=== PATIENT | male | born 1985 | race Two or more races ===

== ENCOUNTER 2021-05-19 10:43 | Inpatient (IN) | payer MEDICAID, SELFPAY ==
[~2021-05-19] VITALS: Ht 170.2 cm; Wt 67.6 kg
[2021-05-19 11:04] VITALS: BP_SYST 149
--- NOTE | 2021-05-19 11:12 | NUR ---
Patient to ER bed 3 to gown for evaluation. Side rails up. Report given to [place] MIKE.
--- NOTE | 2021-05-19 11:20 | NUR ---
RECEIVED IN ROOM, CALM, ALERT, RESP UNLABORED, SKIN WARM AND DRY. COMMUNICATES CLEARLY IN FULL COMPLETE SENTECES, DENIES CP/SOB
[2021-05-19] MEDS ORDERED: GLUCAGON,HUMAN RECOMBINANT 1 MG VIAL IVP ONE (11:45)
--- NOTE | 2021-05-19 11:45 | NUR ---
DR FLOWER IN TO ASSESS
--- NOTE | 2021-05-19 12:10 | NUR ---
SITTING UP TALKING, NO DYSPNEA, DENIES CP/SOB, RESP UNLABORED
--- NOTE | 2021-05-19 12:38 | NUR ---
OFF TO CT VIA WHEELCHAIR, CALM, AND ALERT
--- NOTE | 2021-05-19 13:14 | NUR ---
SWALLOW STUDY COMPLETED, TOLERATED WELL, CINDI, ALERT, CLEAR MENTATION, DENIES CP/SOB
[2021-05-19 14:06] LABS: BASOPHILS % (AUTO) 0.3 % (0.0-2.0); EOSINOPHILS # (AUTO) 0.1 K/uL (0.0-0.4); EOSINOPHILS % (AUTO) 1.1 % (0.0-4.0); HEMOGLOBIN 15.2 g/dL (14.0-18.0); LYMPHOCYTES # (AUTO) 1.2 K/uL (1.0-5.5); LYMPHOCYTES % (AUTO) 9.9 % (20.5-51.5); MEAN CORPUSCULAR HEMOGLOBIN 32 pg (27-31); MEAN CORPUSCULAR HGB CONC 34 % (32-36); MEAN CORPUSCULAR VOLUME 95 fL (79.0-98.0); MONOCYTES # (AUTO) 0.5 K/uL (0.0-1.0); MONOCYTES % (AUTO) 4.6 % (1.7-9.3); NEUTROPHILS # (AUTO) 9.9 K/uL (1.8-7.7); NEUTROPHILS % (AUTO) 84.1 % (40.0-70.0); PLATELET COUNT (AUTO) 275 K/uL (130-430); RED BLOOD CELL COUNT(AUTO) 4.74 MIL/uL (4.2-6.2); RED CELL DISTRIBUTION WIDTH 13.4 % (9.0-15.0); WHITE BLOOD COUNT (AUTO) 11.8 K/uL (4.8-10.8)
[2021-05-19 14:23] LABS: CALCIUM 11.3 mg/dL (8.4-11.0); CREATININE 0.84 mg/dL (0.55-1.30); POTASSIUM 4.5 mmol/L (3.5-5.1)
[2021-05-19 14:28] LABS: ALBUMIN 4.1 g/dL (3.4-4.8)
[2021-05-19] MEDS ORDERED: BELLADONNA ALKALOIDS/PHENOBARB 5 ML UDC PO ONE (14:45)
--- NOTE | 2021-05-19 15:05 | NUR ---
ADMISSION ORDERS RECEIVED FROM DR. MACEDO. PT TO BE ADMITTED TO M/S UNIT FOR FOREIGN BODY.
[2021-05-19] MEDS ORDERED: D5NS 1,000 ML IV SCH (15:15)
[2021-05-19] MEDS ORDERED: MEPERIDINE 100 MG INJ. 100 MG/ML VIAL ONE (16:13)
[2021-05-19] MEDS ORDERED: MIDAZOLAM HCL 5 MG/5 ML VIAL ONE ×2 (16:13→17:14)
[2021-05-19] MEDS ORDERED: SIMETHICONE 40 MG/0.6 ML ML ONE (16:13)
[2021-05-19] MEDS ORDERED: METOCLOPRAMIDE HCL 10 MG/2 ML VIAL IVP PRN (16:15)
[2021-05-19] MEDS ORDERED: ONDANSETRON HCL 4 MG/2 ML VIAL IVP PRN (16:15)
[2021-05-19] MEDS ORDERED: MORPHINE 2 MG/ML INJ. SYRINGE IVP PRN (16:15)
[2021-05-19] MEDS ORDERED: MORPHINE 4 MG INJ. 4 MG/ML VIAL IVP PRN (16:15)
[2021-05-19] MEDS ORDERED: ACETAMINOPHEN 325 MG TABLET PO PRN (16:15)
--- NOTE | 2021-05-19 16:15 | NUR ---
UNABLE TO TOLERATE PO, PT CALM, ALERT, RESP UNLABORED, SKIN WARM AND DRY. EMESIS BAG WITH 150 ML SALIVA.
[2021-05-19] MEDS ORDERED: DICYCLOMINE HCL 10 MG/5 ML SOLUTION PO ONE (16:30)
--- NOTE | 2021-05-19 16:40 | NUR ---
RECEIVED BY GI LAB, PT CALM, ALERT, NAD
--- NOTE | 2021-05-19 16:40 | NUR ---
Pt transferred to GI Lab by carter with GI team.
[2021-05-19] MEDS ORDERED: DIPHENHYDRAMINE INJ 50 MG/ML VIAL ONE (17:14)
--- NOTE | 2021-05-19 17:50 | NUR ---
ADMIT NOTE ADMITTED FROM ER THRU GI LAB STATUS POST EGD REMOVAL OF FOREIGN BODY. AWAKE AND ALERT. DOES NOT APPEAR TO BE IN ANY TYPE OF DISTRESS. CALL LIGHT WITHIN REACH. ORIENTED TO ROOM SET UP. PLAN OF CARE DISCUSSED. PT VERBALIZED UNDERSTANDING
--- NOTE | 2021-05-19 18:40 | NUR ---
DR ZEHRA GARCÍA MD. PER DR SHAHID,. HE SW DR MACEDO AND PATIENT CAN BE DISCHARGE HOME WHEN STABLE
[2021-05-19 18:45] VITALS: BP_SYST 144
[2021-05-19 18:46] VITALS: BP_SYST 144
[2021-05-19 19:44] VITALS: BP_SYST 158
--- NOTE | 2021-05-19 19:45 | NUR ---
CHANGE OF SHIFT; endorsed by [facility] for discharge. needs to void before he goes. S/P removal of foreign body thru EGD.
[2021-05-19 19:47] VITALS: BP_SYST 158
[2021-05-19] MEDS ORDERED: PRO40 PO (19:50)
--- NOTE | 2021-05-19 19:54 | NUR ---
DIET PATIENT TOLERATED FULL LIQUID DIET. EDUCATED ON DIET AT HOME. PT VERBALIZED UNDERSTANDING
--- NOTE | 2021-05-19 20:27 | NUR ---
NOTES: pt. already voided. discharge instructions given to pt. with prescription. verbalized understanding. IV lock removed on left forearm. no complaints manifested.
--- NOTE | 2021-05-19 20:45 | NUR ---
NOTES: pt. duglas in stable condition, ambulated accompanied by his father.
== END 2021-05-19 20:45 | disposition home or self-care (01) | DRG 254 ==
LOC: SED 10:43 → SMU 15:02
PROVIDERS: ADMIT Internal Medicine Hospice and Palliative Medicine; ATTEND Internal Medicine Hospice and Palliative Medicine
PROC: 0DB68ZX Excision of Stomach, Via Natural or Artificial Opening Endoscopic, Diagnostic (ICD-10-PCS; 2021-05-19)
PROC: 0D738ZZ Dilation of Lower Esophagus, Via Natural or Artificial Opening Endoscopic (ICD-10-PCS; 2021-05-19)
PROC: 0DC28ZZ Extirpation of Matter from Middle Esophagus, Via Natural or Artificial Opening Endoscopic (ICD-10-PCS; 2021-05-19)
PROC: 0DB28ZX Excision of Middle Esophagus, Via Natural or Artificial Opening Endoscopic, Diagnostic (ICD-10-PCS; principal; 2021-05-19 16:40)
PROC: 0DB78ZX Excision of Stomach, Pylorus, Via Natural or Artificial Opening Endoscopic, Diagnostic (ICD-10-PCS; 2021-05-19 16:40)
DX: T18.198A Other foreign object in esophagus causing other injury, initial encounter (principal); S27.813A Laceration of esophagus (thoracic part), initial encounter; K22.2 Esophageal obstruction; K29.70 Gastritis, unspecified, without bleeding; K20.0 Eosinophilic esophagitis; K29.80 Duodenitis without bleeding; Z20.822 Contact with and (suspected) exposure to COVID-19; K44.9 Diaphragmatic hernia without obstruction or gangrene; X58.XXXA Exposure to other specified factors, initial encounter; Y93.89 Activity, other specified; Y92.89 Other specified places as the place of occurrence of the external cause; Y99.8 Other external cause status
CPT/HCPCS: 36415; 43239; 74220-TC; 80053; 85025; 87081; 88305; 88312; 88313; 96374; 99285; J1200; J1610; J2175; J2250